=== PATIENT | male | born 1990 | race Caucasian/White ===

== ENCOUNTER 2017-02-01 13:50 | Emergency (ER) | payer SELFPAY ==
[~2017-02-01] VITALS: Ht 167.6 cm; Wt 68.0 kg
[2017-02-01 14:05] VITALS: BP 108/72
[2017-02-01] MEDS ORDERED: VITAMIN D1000 UNI1 ORAL (14:18)
[2017-02-01] MEDS ORDERED: CALCITRIOL0.5 MCG PO (14:18)
[2017-02-01 14:22] VITALS: BP 108/72
--- NOTE | 2017-02-01 19:04 | Emergency Room Report ---
History of Present Illness General Chief Complaint: Medication Refill Source: Patient Present Illness HPI The patient is a 26-year-old male with a history of rickets disease presenting for medication refill. He states that he is traveling from [place] and does not have prescription for Calcitriol. He has been unable to establish relationship a PMD while here. He states that he has been out of medication for the past 3 weeks and is beginning to feel symptoms such as pain in the legs and fatigue. He denies any other symptoms including nausea, vomiting, fever, chills, headache , dizziness, chest pain, shortness of breath Allergies: Coded Allergies: No Known Allergies (Unverified , 02/01/17) Patient History Past Medical History: see triage record Pertinent Family History: none Reviewed Nursing Documentation: PMH: Agreed, PSxH: Agreed Review of Systems All Other Systems: negative except mentioned in HPI Physical Exam Vital Signs Date Time Temp Pulse Resp B/P Pulse Ox O2 Delivery O2 Flow Rate FiO2 02/01/17 13:55 98.1 70 15 108/72 97 Room Air Sp02 EP Interpretation: reviewed, normal General Appearance: no apparent distress, alert, GCS 15, non-toxic Head: atraumatic, other - enlarged head Eyes: bilateral eye PERRL, bilateral eye normal inspection ENT: hearing grossly normal, normal pharynx, no angioedema, normal voice Respiratory: chest non-tender, lungs clear, normal breath sounds, speaking full sentences Cardiovascular #1: regular rate, rhythm, no edema Musculoskeletal: back normal, gait/station normal, normal range of motion, non- tender, other - varus gait Neurologic: alert, oriented x3, responsive, motor strength/tone normal, sensory intact, speech normal Psychiatric: judgement/insight normal, memory normal, mood/affect normal, no suicidal/homicidal ideation Skin: normal color, no rash, warm/dry, well hydrated Lymphatic: no adenopathy Medical Decision Making PA Attestation Dr. [email or web address] is my supervising physician. Patient management was discussed with my supervising physician Diagnostic Impression: Primary Impression: Rickets Additional Impression: Encounter for medication refill ER Course The pt is a 26 yo M with a hx of Ricket's disease with vitamin D deficiency presenting for medication refill DDx: vitamin D deficiency, hypocalcemia, depression, anxiety, hypothyroidism, among others PE: vitals WNL. A&Ox4 Neck is soft and supple RRR Lungs CTA bilat Skin warm and dry Prescription refilled and patient will have to FU with PMD. ER precautions given Last Vital Signs Date Time Temp Pulse Resp B/P Pulse Ox O2 Delivery O2 Flow Rate FiO2 02/01/17 14:22 98.1 15 108/72 97 Room Air 02/01/17 13:55 70 Status: improved Disposition: HOME, SELF-CARE Condition: Improved Scripts Cholecalciferol (Vitamin D3)* (VITAMIN D*) 1,000 Unit Tablet 1000 UNIT ORAL DAILY, #30 TAB Prov: YUMIKO LOPEZ 02/01/17 Calcitriol (CALCITRIOL) 0.5 Mcg Capsule 0.5 MCG PO BID, #60 CAP Prov: YUMIKO LOPEZ 02/01/17 Referrals: NOT CHOSEN IPA/,REFERRING (PCP) Patient Instructions: Medicine Refill at the Emergency Department, Vitamin D Deficiency Additional Instructions: I discussed my findings with the patient. All questions and concerns have been answered. Treatment and medication compliance have been addressed. I advised the patient that they need to follow up with PMD in 3-5 days. Return to ED if symptoms worsen, new symptoms arise, or if needed for any reason. Patient verbalized understanding of discharge instructions. YUMIKO LOPEZ Feb 01, 2017 19:04
== END 2017-02-01 14:29 | disposition home or self-care (01) ==
LOC: EMR 14:25
DX: E55.0 Rickets, active (principal); Z76.0 Encounter for issue of repeat prescription; E55.9 Vitamin D deficiency, unspecified
CPT/HCPCS: 99284